=== PATIENT | male | born 1995 | race Two or more races ===

== ENCOUNTER 2025-03-04 18:25 | Emergency (ER) | payer MEDICAID, SELFPAY ==
[2025-03-04 18:26] VITALS: BMI 24.1
[2025-03-04 19:02] VITALS: BP 123/81; PULSE 85; RESP 22; TEMP 36.9; O2SAT 99
--- NOTE | 2025-03-04 19:04 | XR_ITS ---
Examination: CT abdomen and pelvis without contrast. Coronal 3-D reconstructions. Sagittal 2-D reconstructions. Date and time of exam:March 04, 2025 1909 hrs. Indications: Onset abdominal pain today, history appendectomy cholecystectomy CTDI: vol (mGy): 4.32 DLP: (mGycm): 225 Technique: Axial images of the abdomen have been obtained, 3 mm slice thickness Intravenous contrast material has not been administered. Low dose protocols were performed. One or more of the following dose reduction techniques were used; automated exposure control, adjustment of the mA and/or KV according to patient size, use of iterative reconstruction technique. Findings: No focal liver or splenic lesions Absent gallbladder No pancreatic or adrenal mass. No renal or ureteral calculi, no hydronephrosis Aorta normal size No bowel obstruction Absent appendix No diverticulitis. Normal seminal vesicles Normal prostate Normal urinary bladder The osseous structures are intact Impression: No acute process in the abdomen or pelvis
--- NOTE | 2025-03-04 19:04 | PD.EDRME ---
Rapid Medical Screening Exam RME Arrival date/time: 03/04/25 18:25 This is a case of 29-year-old male with history of irritable bowel syndrome came in in the emergency room due to abdominal pain nausea vomiting for 3 days worsening symptoms this patient decided to start consult here in the emergency room Chief Complaint: Abdominal Pain Time Seen by Provider: 03/04/25 18:26 Vital signs: Vital Signs Temperature 98.5 F 03/04/25 19:02 Pulse Rate 85 03/04/25 19:02 Respiratory Rate 22 H 03/04/25 19:02 Blood Pressure 123/81 03/04/25 19:02 Pulse Oximetry (%) 99 03/04/25 19:02 Oxygen Delivery Method Room Air 03/04/25 19:02
[2025-03-04 19:29] LABS: Basophils # (Auto) 0.1 Thou/mm3 (0.0-0.2); Basophils % (Auto) 1 % (0-2.5); Eosinophils # (Auto) 0.6 Thou/mm3 (0.0-0.5); Eosinophils % (Auto) 5 % (0-10); Hematocrit 46.2 % (41.0-53.0); Hemoglobin 16.3 g/dL (13.5-16.0); Immature Granulocytes Auto 0.03 Thou/mm3 (0.00-0.00); Lymphocytes # (Auto) 3.4 Thou/mm3 (1.0-4.8); Lymphocytes % (Auto) 28 % (10-50); Mean Corpuscular HGB Conc 35.3 g/dl (31.0-37.0); Mean Corpuscular Hemoglobin 30.9 pg (25.0-35.0); Mean Corpuscular Volume 88 fL (80-100); Monocytes # (Auto) 0.8 Thou/mm3 (0.0-0.8); Monocytes % (Auto) 6 % (0-12); Neutrophils # (Auto) 7.3 Thou/mm3 (1.8-7.7); Neutrophils % (Auto) 60 % (37-80); Nucleated Red Blood Cell # 0.00 Thou/mm3 (0.00-0.00); Nucleated Red Blood Cell % 0 /100 WBC (0); Platelet Count 251 Thou/mm3 (140-440); RDW Standard Deviation 40.4 fL (35.1-43.9); Red Blood Count 5.27 Miln/mm3 (4.50-5.90); White Blood Count 12.1 Thou/mm3 (3.8-10.6)
[2025-03-04 19:53] LABS: Alanine Aminotransferase 32 U/L (10-49); Albumin, Serum 4.6 gm/dL (3.5-5.0); Albumin/Globulin Ratio 2.2 (1.2-2.2); Alkaline Phosphatase 81 U/L (46-116); Amylase 68 U/L (30-118); Anion Gap 11 (7-16); Aspartate Amino Transferase 43 U/L (0-34); BUN/Creatinine Ratio 11 Ratio (12-20); Bilirubin,Total 0.5 mg/dL (0.3-1.2); Blood Urea Nitrogen 10 mg/dL (9-23); Calcium 9.5 mg/dL (8.3-10.6); Calcium (Corrected) 9.5 mg/dL (8.5-10.1); Carbon Dioxide 25.2 mMol/L (20.0-31.0); Chloride 106 mMol/L (98-107); Creatinine (Component) 0.9 mg/dL (0.6-1.3); Estimated Creatinine Clearance 104.4 mL/min (>60); Globulin 2.1 gm/dL (2.3-3.5); Glucose 88 mg/dL (74-106); Osmolality,Calculated 281 (275-295); Potassium 3.6 mMol/L (3.4-5.1); Sodium 142 mMol/L (136-145); Total Protein 6.7 gm/dL (5.7-8.2); eGFR > 60 See Note
[2025-03-04 19:54] LABS: Collection Type, Urine Clean Catch; Squamous Epithelial Cell,Urine 0 /hpf (0-5)
[2025-03-04 19:57] LABS: Bilirubin,Urine Negative (Negative); Blood,Urine Negative (Negative); Clarity,Urine Clear (Clear/Hazy); Color,Urine Lt-Yellow (Lt Yel-Yel); Glucose, Urine Negative (Negative); Ketones,Urine Negative (Negative); Leukocyte Esterase,Urine Negative (Negative); Nitrite,Urine Negative (Negative); PH,Urine 7.5 (5.0-7.0); Protein,Urine Negative (Neg - Trace); RBC,Urine 1 /hpf (0-3); Specific Gravity,Urine 1.015 (1.001-1.035); Urobilinogen,Urine Negative mg/dL (0.0-1.0); WBC,Urine < 1 /hpf (0-5)
--- NOTE | 2025-03-04 20:05 | EDNOTE_ITS ---
ED Abdominal Pain RME/HPI General Chief Complaint: Abdominal Pain Stated complaint: ABD PAIN x 10 MINUTES Time seen by provider: 03/04/25 18:26 Arrival date/time: 03/04/25 18:25 RME / HPI RME / HPI narrative: 03/04/25 18:25 This is a case of 29-year-old male with history of irritable bowel syndrome came in in the emergency room due to abdominal pain nausea vomiting for 3 days worsening symptoms this patient decided to start consult here in the emergency room. DR. DUMAS MAIN ED EVALUATION: Patient with Hx of IBS presents with periumbilical abdominal pain since 5 PM. Pain is described as cramping and achy of constant nature worsening with respiration. No reported fever, chills, nausea, or vomiting. Reports 2 episodes of non-bloody diarrhea earlier today. PMH: IBS PSH: Appendectomy, Cholecystectomy Allergies: NSAIDS's and Acetaminophen Related Data Previous Rx's ?Medication ?Instructions ?Recorded oxycodone 5 mg tablet 5 mg PO Q6H PRN pain #10 tab s 11/26/21 hyoscyamine sulfate 0.125 mg 0.125 mg PO QID cramping #14 tabs 03/04/25 sublingual tablet (Levsin/SL) magnesium citrate 150 ml PO BID PRN constipati on 03/04/25 #296 mL Allergies Allergy/AdvReac Type Severity Reaction Status Date / Time acetaminophen (From Tylenol) Allergy Severe Abdominal Verified 03/04/25 18:27 Pain ibuprofen Allergy Severe Rash Verified 03/04/25 18:27 Review of Systems Review of Systems Systems Reviewed: All systems reviewed, normal except as documented Past Medical History Past Medical History CARDIAC: Positive Heart Murmur GASTROINTESTINAL: Positive Irritable Bowel MUSCULOSKELETAL: Positive Fractures OTHER HISTORY: Positive Hospitalization (2018 gallbladder) and Chicken Pox Family History FAMILY HISTORY: Positive Family Psychiatric Problems, Family Respiratory Disorders, Family Gastrointestinal Problems, Family Cancer, Family Surgery and Family Anesthesia Reaction ED Exam Narrative Physical exam: GEN. APPEARANCE: The patient is alert awake oriented X-3, appears apprehensive, does not look ill/toxic. Patient has good eye contact. Patient is cooperative. C/o perimumbilical pain VITALS: All vitals were reviewed and the pulse ox is 99% on room air which is normal according to my interpretation. HEENT: Normocephalic, atraumatic. Pupils are equal and reactive. Oral mucosa is moist. Patent Nares NECK: Supple, nontender, no thyromegaly, no meningismus, no JVD, no step offs CHEST: Symmetrical, atraumatic, and with equal expansion , Nontender on palpation no deformity and no crepitus. CARDIOVASCULAR: Heart regular rhythm no murmur or gallop rub or extra beats. LUNGS: Clear to auscultation bilaterally with symmetrical chest rise. No laboring tachypnea or wheezing. No intercostal subcostal retraction. No rales and no rhonchi. ABDOMEN: Soft, flat, TTP at perimubilical region extending to epigastrium, no peritoneal findings noted, no guarding or rebound tenderness. There are no abnormal masses palpated. Active and normal bowel sounds. EXTREMITIES: Nontender. No edema. No cyanosis. Patient is able to move all 4 extremities well, with full ROM and good CSM. SKIN: Warm and dry, no jaundice or rashes noted. MUSCULOSKELETAL: No lubar or midline bony tenderness. There is no CVA tenderness. No paraspinal muscle spasm or tenderness. NEURO: Patient is NORTH x 4, Cranial nerves II through XII grossly intact. There is no focal neurologic deficits noted. GCS is 15, PNS and [employer] appear grossly intact. PSYCHIATRIC: Patient is in normal mood and affect, cooperative, no SI or HI or hallucinations. Course Quality Measures none Orders Category Date Time Status CT abdomen pelvis wo con Stat Exams 03/04/25 19:04 Completed Amylase Stat Lab 03/04/25 19:22 Completed CBC Stat Lab 03/04/25 19:22 Completed Comprehensive Metabolic Panel Stat Lab 03/04/25 19:22 Completed Urinalysis Stat Lab 03/04/25 19:41 Completed Morphine* Inj Med 03/04/25 20:15 Discontinued 4 mg IM X1 ONE Prochlorperazine Inj [Compazine Inj] Med 03/04/25 20:15 Discontinued 5 mg IM X1 ONE Vital Signs Vital signs: Vital Signs Temperature 98.5 F 03/04/25 19:02 Pulse Rate 85 03/04/25 19:02 Respiratory Rate 22 H 03/04/25 19:02 Blood Pressure 123/81 03/04/25 19:02 Pulse Oximetry (%) 99 03/04/25 19:02 Oxygen Delivery Method Room Air 03/04/25 19:02 Abdominal Pain MDM MDM Narrative MDM Narrative:: Scribe Attestation: I, Althea Kurtz, am scribing for and in the presence of Dr. Dumas. Provider Notation: Although this document has been carefully reviewed, there may still be some phonetic and other typographical errors. These errors are purely grammatical due to imperfections in the software program and should not be construed in any way to compromise the substance of the patient's medical care during this visit. Patient with Hx of IBS presents with periumbilical abdominal pain since 5 PM. Pain is described as cramping and achy of constant nature worsening with respiration. Please see PE findings. Laboratory markers, including CBC show marginally elevated WBC's of 12.1. No left shift or signs of associated bandemia. Serum chemistries essentially negative. UA without signs of infection. Treated with IM narcotic analegesics in addition to anti-emetic therapy. Abdomi nal CT failed to show evidence of acute intra-abdominal condition, no signs of obstruction, but showing right colonic stool burden. Will place on laxative, maintain clear liquids for 24 hours, and F/U with PMD. Precautionary instructions issued with prescription of Magnesium citrate. Patient data External records reviewed:: [facility] previous records (Reviewed prior ED records from 11/25/21. Patient was seen for Abdominal pain.) Clinical information provided by:: patient Social determinants that could affect healthcare access:: none Patient has the following chronic illnesses:: IBS, Heart Murmur How is presenting disease/condition affected by chronic disease/condition?: exacerbated by Evaluation data The following diagnostics were reviewed and interpreted by me:: lab results and radiology exam(s) Lab and/or radiology exams considered but not ordered:: None Interpretation Summary: RADIOLOGY Abdomen/Pelvis CT: Findings: No focal liver or splenic lesions Absent gallbladder No pancreatic or adrenal mass. No renal or ureteral calculi, no hydronephrosis Aorta normal size No bowel obstruction Absent appendix No diverticulitis. Normal seminal vesicles Normal prostate Normal urinary bladder The osseous structures are intact Impression: No acute process in the abdomen or pelvis Medications / Prescriptions Medications or Prescriptions considered but not ordered:: None Medication administrations:: Medication Administration History Discontinued Medications Morphine Sulfate (Morphine Sulf Inj 4 Mg/Ml Vial) 4 mg IM X1 ONE Stop: 03/04/25 20:16 Last Admin: 03/04/25 20:30 Dose: 4 mg Documented By: ERIKA Prochlorperazine Edisylate (Prochlorperazine Inj 5 Mg/Ml Vial 2 Ml) 5 mg IM X1 ONE; Protocol Stop: 03/04/25 20:16 Last Admin: 03/04/25 20:30 Dose: 5 mg Documented By: ERIKA See above if any Consultations Consultation(s) initiated? (list below): No Diagnosis Differential diagnosis abdominal pain: abdominal pain, calculus of kidney, constipation, diverticulitis, gastroenteritis, pancreatitis and small bowel obstruction Most likely diagnosis given after review of the tests above:: Abdominal pain, Constipation due to opioid therapy Admission Indicated Admission indicated?: not indicated Explain why admission is indicated or not indicated:: Patient does not meet admission criteria. Admission Request Was there a request for admission?: No Disposition Plan Disposition Plan: Discharge Discharge Attestation Discharge Attestation: The patient and all family members were given an opportunity to ask questions and understood the discharge instructions. Discharge instructions specifically effects, indications for sooner follow up or return to the emergency department, and the expected course of current diagnosis. Patient condition: Stable Discharge Plan Plan Patient Disposition: HOME (Self Care) Discharge Disposition comment: Stable Prescriptions/Referrals Prescriptions/Med Rec: New magnesium citrate Solution 150 ml PO BID PRN (Reason: constipation) Qty: 296 0RF hyoscyamine sulfate [Levsin/SL] 0.125 mg tablet, sublingual 0.125 mg PO QID Qty: 14 0RF No Action oxycodone 5 mg tablet 5 mg PO Q6H MDD 6 tabs PRN (Reason: pain) Qty: 10 0RF Referrals: Joey (PCP)Regino MD [Primary Care Provider, Family Practice] - In 1 week Problem List Clinical Impression: Abdominal pain, Constipation due to opioid therapy Patient/Caregiver Discharge Instructions Discharge Activity: activity as tolerated Diet Instructions: Clear liquid diet x 24 to 48 hours. Education Materials: Abdominal Pain, ED Constipation (Adult) Additional Instructions: Clear liquid diet x 24 hours and medications as directed. Follow-up with GI specialist within 5 to 7 days return if worsening. Print Language: Colombian Stand Alone Forms: [employer] Award Info., Patient Portal Info Letter
[2025-03-04] MEDS: PROCHLORPERAZINE INJ 5 MG/ML VIAL 2 ML IM (20:30)
[2025-03-04] MEDS: MORPHINE SULF INJ 4 MG/ML VIAL IM (20:30)
== END 2025-03-04 20:41 | disposition home or self-care (01) ==
PROVIDERS: Nurse Practitioner Family; Emergency Provider Emergency Medicine; PCP Family Medicine
DX: K59.03 Drug induced constipation (principal); T40.2X5A Adverse effect of other opioids, initial encounter; R10.33 Periumbilical pain
CPT/HCPCS: 36415; 74176; 80053; 81001; 82150; 85025; 96372; 99284; J0780; J2270